=== PATIENT | male | born 1965 | race Caucasian/White ===

== ENCOUNTER 2023-03-19 18:53 | Emergency (ER) | payer OTHER ==
[~2023-03-19] VITALS: Ht 182.9 cm; Wt 82.1 kg
[2023-03-19 19:32] VITALS: BP_SYST 141; PULSE 101; RESP 18; TEMP 98.2; O2SAT 97
[2023-03-19 20:43] LABS: INFLUENZA TYPE A Negative (NEGATIVE); INFLUENZA TYPE B NEGATIVE (NEGATIVE)
[2023-03-19 21:39] LABS: BASOPHILS % (AUTO) 0.3 % (0.0-2.0); EOSINOPHILS % (AUTO) 0.4 % (0.0-4.0); HEMATOCRIT 43.9 % (36-54); HEMOGLOBIN 15.3 g/dL (14.0-18.0); LYMPHOCYTES # (AUTO) 1.4 K/uL (1.0-5.5); LYMPHOCYTES % (AUTO) 36.1 % (20.5-51.5); MEAN CORPUSCULAR HEMOGLOBIN 31 pg (27-31); MEAN CORPUSCULAR HGB CONC 35 % (32-36); MEAN CORPUSCULAR VOLUME 89 fL (79.0-98.0); MONOCYTES # (AUTO) 0.4 K/uL (0.0-1.0); MONOCYTES % (AUTO) 10.8 % (1.7-9.3); NEUTROPHILS # (AUTO) 2.1 K/uL (1.8-7.7); NEUTROPHILS % (AUTO) 52.4 % (40.0-70.0); PLATELET COUNT (AUTO) 205 K/uL (130-430); RED BLOOD CELL COUNT(AUTO) 4.92 MIL/uL (4.2-6.2); RED CELL DISTRIBUTION WIDTH 13.2 % (9.0-15.0)
[2023-03-19 21:43] LABS: CALCIUM 8.6 mg/dL (8.4-11.0); CREATININE 1.1 mg/dL (0.55-1.30); POTASSIUM 3.8 mmol/L (3.5-5.1)
[2023-03-19] MEDS ORDERED: cefTRIAXone 1 GM in LIDOCAINE 1%, 20 ML MDV 2.1 ML IM ONE (23:30)
[2023-03-19] MEDS ORDERED: MED4 PO (23:33)
[2023-03-19] MEDS ORDERED: AUG875 PO (23:33)
[2023-03-19 23:44] VITALS: BP_SYST 141; PULSE 101; RESP 18; TEMP 98.2; O2SAT 97
== END 2023-03-19 23:44 | disposition home or self-care (01) ==
LOC: SED 18:53
DX: J20.9 Acute bronchitis, unspecified (principal); R05.9 Cough, unspecified; R09.81 Nasal congestion; R07.89 Other chest pain; E11.9 Type 2 diabetes mellitus without complications; Z79.899 Other long term (current) drug therapy; Z20.822 Contact with and (suspected) exposure to COVID-19
CPT/HCPCS: 99284; 71045; 87426; 80048; 82962; 85025; 36415; 96372; 87804 ×2; J0696; J2001